=== PATIENT | female | born 1945 | race Caucasian/White ===

== ENCOUNTER 2022-08-18 11:02 | Day surgery (SDC) | payer MEDICARE ==
[~2022-08-18 11:02] MED LIST: ASPI-1265 PO; LACT1CAP65 PO; MAGN296S68 PO; OMEG300C3 PO; RANI300T7 PO
[2022-08-18 11:20] VITALS: BP 166/55
[2022-08-18] MEDS ORDERED: LOP12.5T PO (11:44)
[2022-08-18] MEDS ORDERED: FAMO40TA73 PO (11:45)
[2022-08-18] MEDS ORDERED: LIDOcaine Viscous 15ml cup ONE (12:19)
[2022-08-18] MEDS ORDERED: fentaNYL/PF 50MCG/1 ML 2ML syringe ONE (12:19)
[2022-08-18] MEDS ORDERED: MIDAZolam 1 MG/ML 5ML VIAL ONE (12:19)
[2022-08-18 12:55] VITALS: BP 137/67
[2022-08-18 13:05] VITALS: BP 149/67
[2022-08-18 13:15] VITALS: BP 151/67
[2022-08-18 13:25] VITALS: BP 160/68
== END 2022-08-18 13:35 | disposition home or self-care (01) ==
LOC: GI LAB 11:02
PROVIDERS: ATTEND Internal Medicine Gastroenterology
DX: K22.70 Barrett's esophagus without dysplasia (principal); K20.80 Other esophagitis without bleeding; K29.50 Unspecified chronic gastritis without bleeding; K31.7 Polyp of stomach and duodenum; J45.909 Unspecified asthma, uncomplicated; I48.91 Unspecified atrial fibrillation; Z72.89 Other problems related to lifestyle; Z79.899 Other long term (current) drug therapy; Z88.5 Allergy status to narcotic agent; Z88.1 Allergy status to other antibiotic agents; Z90.710 Acquired absence of both cervix and uterus; Z98.890 Other specified postprocedural states
CPT/HCPCS: 43239; G0500; J2250; J3010; J7030; Z7512; 99152; A4620

== ENCOUNTER 2023-01-19 09:42 | Outpatient (CLI) | payer MEDICARE ==
[~2023-01-19 09:42] MED LIST changes: -ASPI-1265 PO; +FAMO40TA73 PO; -LACT1CAP65 PO; +LOP12.5T PO; -OMEG300C3 PO; -RANI300T7 PO
== END 2023-01-19 23:59 | disposition home or self-care (01) ==
LOC: CARD DIAG 09:42
PROVIDERS: ATTEND Nurse Practitioner
DX: I08.3 Combined rheumatic disorders of mitral, aortic and tricuspid valves (principal); I48.0 Paroxysmal atrial fibrillation
CPT/HCPCS: 93306

== ENCOUNTER 2024-12-17 12:17 | Outpatient (CLI) | payer MEDICARE ==
--- NOTE | 2024-12-17 18:35 | CARDIOLOGY REPORT ---
APPROVED REPORT EXAM: Comprehensive 2D, Doppler, and color-flow Echocardiogram. Patient Location: OUT-PATIENT Blood Pressure: 133/59 mmHg Heart Rate: 67 bpm Rhythm: SINUS Indications ATRIAL FIBRILLATION [employer] Instructor: Alexia Dinh NP ([facility]) Previous echo: 01/19/23 [facility] (EF 75-80%, mild eccentric AI, mild MR, trace to mild TR) 2D Dimensions RVDd 3.3 cm IVSd 0.9 (0.7-1.1cm) LVDd 5.1 cm PWd 0.8 (0.7-1.1cm) IVSs 1.2 (0.8-1.2cm) LVDs 3.2 (2.5-4.0cm) PWs 1.5 (0.8-1.2cm) LVOT Diameter 1.95 (1.8-2.4cm) LVEF(%) 66.0 (>50%) Ao Asc Diam.3.30 cm FS (%) 36.5 % SV 80.0 ml M-Mode Dimensions Left Atrium(MM) 4.30 (2.5-4.0cm) Aortic Root 2.54 (2.2-3.7cm) Aortic Cusp Exc 1.84 (1.5-2.0cm) MV EPSS 0.3 (<0.5cm) FS (%) 47 % ESV(Teich) 39.0 ml Aortic Valve AoV Peak Arpit. 201.5 cm/s AoV VTI 44.1 cm AO Peak GR. 16.2 mmHg AO Mean GR. 10 mmHg LVOT VTI 36.50 cm LVOT Peak Arpit. 163.7 cm/s DEVAN (VMAX) 2.43 cm2 DEVAN (VTI) 2.47 cm2 AI P 1/2 Time 390 ms Mitral Valve MV E Velocity 100.9 cm/s MV DECEL TIME 191 ms MV A Velocity 80.2 cm/s MV PHT 54 ms E/A Ratio 1.3 MVA (PHT) 4.07 cm2 TDI E/Medial E' 14.1 Pulmonary Vein S2 Velocity 86.10 cm/s PVa [id number] msec LEFT VENTRICLE Normal LV size and wall thickness. Overall systolic function is normal. LVEF is 65-70%. RIGHT VENTRICLE RV is normal size and function. ATRIA Left atrium is severely dilated. Right atrium is at least mildly dilated. AORTIC VALVE Trileaflet AV appears mildly sclerotic without stenosis. Moderate eccentric insufficiency. MITRAL VALVE Mild MV annular calcification without stenosis. Trace regurgitation. TRICUSPID VALVE TV appears structurally normal with trace regurgitation. PULMONIC VALVE Normal PV without stenosis, mild insufficiency. GREAT VESSELS Aortic root is normal in size. Ascending aorta is normal in size. PERICARDIUM Normal pericardium. No effusion. Other Information Study Quality: Adequate
== END 2024-12-17 23:59 | disposition home or self-care (01) ==
LOC: RAD 12:17
PROVIDERS: ATTEND Nurse Practitioner
DX: I08.8 Other rheumatic multiple valve diseases (principal); I48.0 Paroxysmal atrial fibrillation
CPT/HCPCS: 93306